=== PATIENT | male | born 1975 | race Caucasian/White ===

== ENCOUNTER 2016-10-05 21:32 | Observation (INO) ==
--- NOTE | 2016-10-05 22:03 | Emergency Department Note ---
Disposition Clinical Impression: Lymph nodes enlarged Disposition: Admitted As Inpatient Condition: Good Referrals: NONE,PCP [Non-Partnered Physician] - Forms: ED Satisfaction Letter Extremity Problem HPI - General Chief complaint: ED Extremity Problem,Nontraumatic Stated complaint: lump on left arm Time Seen by Provider: 10/05/16 21:35 Source: patient Mode of arrival: private vehicle Limitations: no limitations Nursing Notes Reviewed: Yes Vital Signs Reviewed: Yes - History of Present Illness HPI Narrative: 40-year-old male known medical history who presents to the ER with a chief complaint of left upper extremities pain. Patient states he started developing pain to his left arm roughly 4 days ago. He denies any trauma. 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 He states he continued to have worsening pain and swelling so came in. He denies any dog bites, Scratches or any other injuries to his arm. He denies fevers, chills, nausea, vomiting, diarrhea at home. Denies IV drug use. No other complaints. Pt Subjective Complaint: extremity pain Onset (ago): day(s) Consistency: constant Injury Location: left, upper extremity Pain Scale: 9 Quality: aching Radiation: proximal Improves with: nothing Worsens with: nothing Associated symptoms: Denies: chest pain, shortness of breath, abdominal pain, fever, redness - Related Data Home Medications Medication Instructions Recorded Confirmed No Known Home Drugs 10/06/16 10/06/16 Allergies Allergy/AdvReac Type Severity Reaction Status Date / Time Penicillins Allergy Hives Verified 04/24/16 20:05 All systems ED: reviewed and negative except as stated. Constitutional: Denies: fever, chills Cardiovascular: Denies: chest pain Respiratory: Denies: dyspnea Gastrointestinal: Denies: abdominal pain, nausea, vomiting, diarrhea Musculoskeletal: Reports: other (LUE pain) Integumentary: Denies: rash Past Medical History - Past Medical History Attestation: Yes The following information was validated with the patient. Source: patient Medical history: Reports: no medical history Surgical history: Reports: non-contributory Psychiatric history: Reports: no psych history - Social History Smoking Status: Current every day smoker Smokeless Tobacco Status: No Alcohol use: Reports: rarely Drug use: Reports: none Physical Exam - General Limitations: no limitations General appearance: alert, in no apparent distress - Head Head exam: atraumatic, normocephalic, normal inspection - Eye Eye exam: Present: normal appearance, EOMI - ENT ENT exam: normal exam - Neck Neck exam: Present: normal inspection, full ROM - Chest Chest inspection: Present: normal inspection, symmetric chest wall rise - Respiratory Respiratory exam: Present: normal lung sounds bilaterally - Cardiovascular Cardiovascular exam: Present: regular rate, normal rhythm, normal heart sounds - Abdominal Exam Abdominal exam: Present: soft, Non-Tender. Absent: tenderness - Extremities Exam Extremities exam: Present: normal inspection, full ROM - Expanded Upper Extremity Exam Shoulder exam: Present: normal inspection, full ROM Arm exam: Present: normal inspection, full ROM, tenderness (There is tenderness to palpation along the medial aspect of the left arm just proximal to the elbow) , swelling (There is underlying well-circumscribed swelling to the left arm just proximal to the elbow with multiple circumscribed areas.), other (No proximal lymphadenopathy detected on exam.). Absent: crepitus, erythema Elbow exam: Present: normal inspection, full ROM Forearm/Wrist exam: Present: normal inspection, full ROM Hand exam: Present: normal inspection, full ROM Vascular exam: Normal: capillary refill, radial pulse - Expanded Lower Extremity Exam Hip/Pelvis exam: Present: normal inspection, full ROM Upper leg exam: Present: normal inspection, full ROM Knee exam: Present: normal inspection, full ROM Lower leg exam: Present: normal inspection, full ROM Ankle exam: Present: normal inspection, full ROM Foot/toe exam: Present: normal inspection, full ROM Neurovascular/Tendon exam: Absent: motor deficit, sensory deficit - Neurological Exam Neurological exam: Present: alert, other (GCS 15. Nonfocal neurologic exam. Moves all extremities equally. Neurovascularly intact in the left upper extremity.) - Psychiatric Psychiatric exam: Present: normal affect, normal mood - Skin Skin exam: Present: warm, dry, intact, normal color Course Course Narrative: Patient seen and examined. Vital signs reviewed. We will obtain a CT scan of the left upper extremity as well as basic labs. Vital Signs Temperature 97.8 F 10/05/16 21:34 Pulse Rate 86 10/05/16 21:34 Respiratory Rate 18 10/05/16 21:34 Blood Pressure 154/84 10/05/16 21:34 O2 Sat by Pulse Oximetry 97 10/05/16 21:34 Temperature 97.8 F 10/05/16 21:34 Pulse Rate 86 10/05/16 21:34 Respiratory Rate 18 10/05/16 21:34 Blood Pressure 154/84 10/05/16 21:34 O2 Sat by Pulse Oximetry 97 10/05/16 21:34 Oxygen Delivery Oxygen Delivery Room Air Extremity Problem, Nontraumati - Lab Data Lab results reviewed: Yes I reviewed the patient's lab results. Result diagrams: 10/05/16 22:01 10/05/16 22:01 Lab Results 10/05/16 10/05/16 10/05/16 Range/Units 22:01 22:01 22:01 WBC 7.1 (4.3-11.1) K/mcL RBC 4.81 (4.19-5.50) M/mcL Hgb 15.0 (12.9-16.9) g/dL Hct 44.4 (37.5-50.1) % MCV 92.3 (83.0-100.0) fL MCH 31.2 (28.0-33.3) pg MCHC 33.8 (31.6-35.5) g/dL RDW 11.5 (11.5-14.5) % Plt Count 143 (140-400) K/mcL MPV 9.7 (9.4-12.4) fL Immature Gran % 0.4 (0-4) % Seg Neutrophils % 41.8 % Lymphocytes % 43.4 % Monocytes % 10.2 % Eosinophils % 3.5 % Basophils % 0.7 % Neutrophils # 2.9 (1.6-8.9) K/mcL Lymphocytes # 3.1 (0.6-4.6) K/mcL Monocytes # 0.7 (0.0-1.3) K/mcL Eosinophils # 0.3 (0.0-0.6) K/mcL Basophils # 0.1 (0.0-0.2) K/mcL ESR 24 H (0-10) mm/hr Sodium 142 (136-145) mEq/L Potassium 4.0 (3.5-4.5) mEq/L Chloride 107 (98-109) mEq/L Carbon Dioxide 25 (19-29) mEq/L BUN 15 (8-26) mg/dL Creatinine 1.17 (0.72-1.25) mg/dL Est GFR ( Amer) > 60 (> 60) Est GFR (Non-Af Amer) > 60 (> 60) BUN/Creatinine Ratio 13 (6-26) Glucose 105 H (70-99) mg/dL Calculated Osmolality 295 (280-300) Calcium 9.5 (8.6-10.8) mg/dL C-Reactive Protein 5 H (Less than 5) mg/L - Radiology Data Radiology results reviewed: Yes I reviewed the patient's radiology results. Upper Extremity CT 10/05/16 21:50 IMPRESSION: 1. Homogeneously enhancing lesion in the region of the patient's palpable abnormality. Given the presence of the enlarged lymph nodes in the left axillary region, a lymph node is the primary differential consideration. Although this could be secondary to infection or inflammation the possibility of neoplasm must be considered. Correlation with any evidence of upper extremity laceration or injury would be helpful. 2. Consider further evaluation with chest CT to evaluate the possibility of any lymphadenopathy within the chest. Also correlate with any clinical evidence of lymphadenopathy within the neck. D/ / Peng Mcmullen MD / Peng Mcmullen MD Interpreting Provider: Peng Mcmullen MD Attestation Statement - Attestation Attestation: I personally interviewed and examined this patient and my medical decision- making was reviewed with the Resident Physician, Dr. Rosado. I agree with the documented findings, disposition and treatment plan as described except to the extent set forth below. Patient is a 32-year-old white male otherwise healthy who presents to the emergency department with a four-day history of tender palpable nodules to the left medial upper arm. Patient first noticed them approximate 4 days ago and feels they are growing in size. He states he has intermittent episodes of pain that radiate to his left axilla. Patient with no overlying erythema or warmth to touch to the affected area, no induration, no rash or skin breakdown. Otherwise his left upper extremity is neurovascularly intact. I agree patient's physical exam findings as documented. Patient had lab evaluation as well as CT imaging of the affected extremity. Overall labs unremarkable only minor elevations in his sedimentation rate and CRP. White count is normal. Patient's vital signs are stable and he is afebrile. Patient is nontoxic appearing. CT concerning for likely enlarged lymph nodes within the left upper arm and axilla. Cannot rule out malignancy. Will admit the patient for further evaluation of lymphadenopathy including consult with hem/onc. Case was discussed with the hospitalist who accepted the patient for admission and further evaluation.
[2016-10-05 22:12] LABS: Basophils # 0.1 K/mcL (0.0-0.2); Basophils % 0.7 %; Eosinophils # 0.3 K/mcL (0.0-0.6); Eosinophils % 3.5 %; Hematocrit 44.4 % (37.5-50.1); Immature Granulocytes % 0.4 % (0-4); Lymphocytes # 3.1 K/mcL (0.6-4.6); Lymphocytes % 43.4 %; Mean Corpuscular HGB Conc 33.8 g/dL (31.6-35.5); Mean Corpuscular Hemoglobin 31.2 pg (28.0-33.3); Mean Corpuscular Volume 92.3 fL (83.0-100.0); Mean Platelet Volume 9.7 fL (9.4-12.4); Monocytes # 0.7 K/mcL (0.0-1.3); Monocytes % 10.2 %; Neutrophils # 2.9 K/mcL (1.6-8.9); Platelet Count 143 K/mcL (140-400); Red Blood Count 4.81 M/mcL (4.19-5.50); Red Cell Distribution Width 11.5 % (11.5-14.5); Segmented Neutrophils % 41.8 %
[2016-10-05 22:23] LABS: BUN/Creatinine Ratio 13 (6-26); Blood Urea Nitrogen 15 mg/dL (8-26); Calcium 9.5 mg/dL (8.6-10.8); Carbon Dioxide 25 mEq/L (19-29); Chloride 107 mEq/L (98-109); Glucose 105 mg/dL (70-99); Osmolality,Calculated 295 (280-300); Sodium 142 mEq/L (136-145); eGFR For African Americans > 60 (> 60); eGFR For Non-African Americans > 60 (> 60)
[2016-10-05 23:08] LABS: C-Reactive Protein 5 mg/L (Less than 5)
[2016-10-06] MEDS ORDERED: Naloxone 0.4 MG/ML INJ IVP PRN (01:11)
--- NOTE | 2016-10-06 01:22 | Internal Med History&Physical ---
Date of Encounter: 10/06/16 Time of Encounter: 01:18 Assessment and Plan (1) Arm mass Current visit: Yes Status: Acute Differential neoplastic versus infectious - less probable. Nothing by mouth after midnight, IV fluids, consult oncology, consult surgery for tissue biopsy. Consider excisional biopsy. Further management pending technical marketing consultant recommendation. Qualifiers: Laterality: left Qualified Code(s): R22.32 - Localized swelling, mass and lump, left upper limb (2) Lymph nodes enlarged Current visit: Yes Status: Acute Pending investigations. Probably related to arm mass Internal Medicine - H&P: HPI Chief complaint: Left medial arm mass History of present illness: Mr. Monreal is a 40 year old male who presents with evaluation of growing Left medial arm mass. He has been in custodial for the last 20-30 days and has just been released yesterday. He first noticed the left upper arm - medial bicep region mass around when he was in custodial. No prior reports of mass before. No fevers, chills or sweats. Describes the mass being associated witih a sharp discomfort with radiation of pain inferiorly. Pain improves when he raised his arm. He denies any medical hx of uses any medications Family hx of lung, prostate, head/neck ca, lymphoma. CT of left UE noted lesion and enlarge nodes. FINDINGS: Bones: No acute bony abnormality is identified. No osteolysis is found. No periosteal reaction. Soft Tissue: In the region of the patient's palpable abnormality (lying along the lateral aspect of the left arm and the level the mid humerus), there is a round lesion measuring approximately 2.0 cm, demonstrating relatively homogeneous central enhancement, and with surrounding fat stranding. This is seen immediately lateral to the cephalic vein. A smaller satellite lesion is seen just proximal to that lesion measuring 9 mm maximally (axial image number 84). There also multiple enlarged left axillary lymph nodes. For example, a lymph node measures 3.1 x 2.2 cm on axial image 183 and coronal reconstructed image 57. The mediastinum is not well visualized on this study, but no obvious left hilar lymph nodes are identified. Joint: The glenohumeral joint and the left elbow are unremarkable in appearance. CT/CT UE LT w con IMPRESSION: 1. Homogeneously enhancing lesion in the region of the patient's palpable abnormality. Given the presence of the enlarged lymph nodes in the left axillary region, a lymph node is the primary differential consideration. Although this could be secondary to infection or inflammation the possibility of neoplasm must be considered. Correlation with any evidence of upper extremity laceration or injury would be helpful. 2. Consider further evaluation with chest CT to evaluate the possibility of any lymphadenopathy within the chest. Also correlate with any clinical evidence of lymphadenopathy within the neck. Past Med Surg Social Fam HX - Past Medical History Medical history: no medical history Psychiatric history: no psych history - Past Surgical History Surgical History: non-contributory - Social History Smoking Status: Current every day smoker Smokeless Tobacco Status: No Alcohol use: rarely Drug use: none - Additional Family History Additional family history: cancers as noted in H&P Internal Medicine - H&P: Meds No Known Home Drugs 10/06/16 [History] 3 Allergy/AdvReac Type Severity Reaction Status Date / Time Penicillins Allergy Hives Verified 04/24/16 20:05 All Systems PM: A 10-system review of systems was performed and is negative for pertinent findings except as documented above in the HPI. - Constitutional Vitals: Temp Pulse Resp BP Pulse Ox 98.2 F 64 16 137/90 99 10/06/16 00:58 10/06/16 00:58 10/06/16 00:58 10/06/16 00:58 10/06/16 00:58 Exam: General - AAO x 3 Psych - Appropriate affect/speech. No agitation Eyes - DUNIA. Eye lids intact. No scleral icterus ENT - Oral mucosa pink, dentition intact. External ear clear/dry/intact. No thyromegaly Lymphatics - No cervical/inguinal lympadenopathy Neuro - No gross peripheral or central neuro deficits with intact CN 2-12 exam Heart - Sinus. RRR. S1 and S2 present. No added HS/murmurs appreciated. No elevated JVD appreciated. No calf swellings/erythema Lung - Adequate air entry b/l, No crackes/wheezes appreciated GI - Soft, non-tender. No hepatosplenomegaly/ascites. BS+ - No CVA/suprapubic tenderness or palpable bladder distension Skin - Intact. No rash/petechiae/ecchymosis. Warm extremities. Tattoos present MSK - left medial bicep mass palpable Internal Med - H&P Results - Labs CBC & Chem 7: 10/05/16 22:01 10/05/16 22:01
[2016-10-06] MEDS: 0.9 % Sodium Chloride 1,000 ML IVC SCH ×2 (01:51→12:06)
[2016-10-06] MEDS: traMADol 50 MG TABLET PO PRN ×2 (01:51→09:39)
[2016-10-06 02:56] LABS: Hematocrit 42.8 % (37.5-50.1); Hemoglobin 14.2 g/dL (12.9-16.9); Mean Corpuscular HGB Conc 33.2 g/dL (31.6-35.5); Mean Corpuscular Hemoglobin 30.9 pg (28.0-33.3); Mean Platelet Volume 9.4 fL (9.4-12.4); Platelet Count 120 K/mcL (140-400); Red Cell Distribution Width 11.6 % (11.5-14.5)
[2016-10-06 03:01] LABS: INR 1.1; Prothrombin Time 12.1 Seconds (9.4-12.1)
[2016-10-06 03:04] LABS: Activated Partial Thrombo Time 31.8 Seconds (26.0-36.0)
[2016-10-06 03:14] LABS: Alanine Aminotransferase 29 Units/L (0-55); Albumin 3.9 g/dL (3.5-5.0); Albumin/Globulin Ratio 1.2 (1.1-2.2); Alkaline Phosphatase 74 Units/L (38-126); Aspartate Amino Transferase 19 Units/L (5-34); BUN/Creatinine Ratio 13 (6-26); Bilirubin,Total 0.4 mg/dL (0.2-1.2); Blood Urea Nitrogen 14 mg/dL (8-26); Calcium 9.1 mg/dL (8.6-10.8); Carbon Dioxide 25 mEq/L (19-29); Chloride 106 mEq/L (98-109); Globulin 3.3 g/dL (2.4-3.5); Glucose 89 mg/dL (70-99); Osmolality,Calculated 288 (280-300); Potassium 4.1 mEq/L (3.5-4.5); Sodium 139 mEq/L (136-145); Total Protein 7.2 g/dL (6.0-8.3); eGFR For African Americans > 60 (> 60); eGFR For Non-African Americans > 60 (> 60)
[2016-10-06 07:11] VITALS: BP 122/76
--- NOTE | 2016-10-06 09:35 | General Surgery Consult Note ---
Date of Encounter: 10/06/16 Time of Encounter: 09:15 Assessment and Plan (1) Arm mass Current Visit: Yes Status: Acute Dr. Adams to review imaging and examine patient to determine next step in the plan of care No surgical intervention today- may have regular diet Qualifiers: Laterality: left Qualified Code(s): R22.32 - Localized swelling, mass and lump, left upper limb (2) Lymph nodes enlarged Current Visit: Yes Status: Acute History of Present Illness Consult date: 10/06/16 Requesting physician: Eliseo Champagne History of present illness: Mr. Monreal is a very pleasant 40 year old male with no significant medical history who presents to the ED with complaints of a left arm mass. He states that he first noticed the mass 3 weeks ago. The mass has increased in size over the past 3 weeks. Admits to mild tenderness around the mass and into the left axilla. Denies any trauma to the left arm. He denies any previous mass in the past. Denies any numbmess/tingling to the LUE. Denies any loss of function to the LUE. Denies any fevers/chills. Denies any shortness of breath or chest pains. He does report a 20 lb. weight loss over the past couple of months. He was incarcerated for 24 days and was released a couple of days ago. Denies any changes in eating habits. He states that he was incarcerated for multiple misdemeanor charges. He has had a CT which shows evidence of a LUE mass with axillary lymphadenopathy. We have been asked to see and evaluate the patient for recommendations. Past Med Surg Social Fam HX - Past Medical History Source: patient Medical history: no medical history Psychiatric history: no psych history - Past Surgical History Surgical History: other (teeth extraction, tonsillectomy and adenoidectomy) - Social History Smoking Status: Current every day smoker (23 years) Packs per day: 1 Smokeless Tobacco Status: No Alcohol use: rarely Drug use: none Occupational status: employed Current living situation: Home - Independent Activity Level: Independent ambulation - Family History Father Living Status: Age at : 49 Cause of : Myocardial infarction Hx Family Cardiac Disorders: Yes Hx Family Medical Disorders: Yes (DVT) Mother Living Status: Still Living Hx Family Endocrine Disorder: Yes (Diabetes Mellitus) Medications and Allergies No Known Home Drugs 10/06/16 [History] 3 Allergy/AdvReac Type Severity Reaction Status Date / Time Penicillins Allergy Hives Verified 04/24/16 20:05 Review of Systems All systems PM: reviewed and no additional remarkable complaints except as stated (in the HPI) All systems PM: A 10-system review of systems was performed and is negative for pertinent findings except as documented above in the HPI. General Surgery Exam Initial Vital Signs Temp Pulse Resp BP Pulse Ox 97.8 F 86 18 154/84 97 10/05/16 21:34 10/05/16 21:34 10/05/16 21:34 10/05/16 21:34 10/05/16 21:34 - General physical appearance well developed, well nourished, no distress, no pain - Eyes normal ocular movement - ENT normal mucosa, atraumatic, normocephalic - Neck trachea midline - Respiratory normal expansion, normal respiratory effort, clear to auscultation - Cardiovascular Cardiovascular exam: Present: RRR - Abdomen Abdomen general surgery: Present: bowel sounds present, soft, non tender - Integumentary Integumentary general surgery: Present: warm and dry, growths (Left upper extremity mass appreciated on exam; axillary lymph nodes palpable and enlarged on exam) - Neurologic Present: CN 2-12 grossly intact - Musculoskeletal Present: normal gait, normal posture - Psychiatric Psychiatric general surgery: Present: appropriate, oriented to person, oriented to place, oriented to time, speech is normal, memory intact Exam Initial Vital Signs Temp Pulse Resp BP Pulse Ox 97.8 F 86 18 154/84 97 10/05/16 21:34 10/05/16 21:34 10/05/16 21:34 10/05/16 21:34 10/05/16 21:34 Results - Labs 10/06/16 02:36 10/06/16 02:36 Abnormal lab results Plt Count 120 K/mcL (140-400) L 10/06/16 02:36 ESR 24 mm/hr (0-10) H 10/05/16 22:01 C-Reactive Protein 5 mg/L (Less than 5) H 10/05/16 22:01 Diabetes panel 10/06/16 Range/Units 02:36 Sodium 139 (136-145) mEq/L Potassium 4.1 (3.5-4.5) mEq/L Chloride 106 (98-109) mEq/L Carbon Dioxide 25 (19-29) mEq/L BUN 14 (8-26) mg/dL Creatinine 1.05 (0.72-1.25) mg/dL Glucose 89 (70-99) mg/dL Calcium 9.1 (8.6-10.8) mg/dL AST 19 (5-34) Units/L ALT 29 (0-55) Units/L Alkaline Phosphatase 74 (38-126) Units/L Albumin 3.9 (3.5-5.0) g/dL Calcium panel 10/06/16 Range/Units 02:36 Calcium 9.1 (8.6-10.8) mg/dL Albumin 3.9 (3.5-5.0) g/dL Pituitary panel 10/06/16 Range/Units 02:36 Sodium 139 (136-145) mEq/L Potassium 4.1 (3.5-4.5) mEq/L Chloride 106 (98-109) mEq/L Carbon Dioxide 25 (19-29) mEq/L BUN 14 (8-26) mg/dL Creatinine 1.05 (0.72-1.25) mg/dL Glucose 89 (70-99) mg/dL Calcium 9.1 (8.6-10.8) mg/dL Adrenal panel 10/06/16 Range/Units 02:36 Sodium 139 (136-145) mEq/L Potassium 4.1 (3.5-4.5) mEq/L Chloride 106 (98-109) mEq/L Carbon Dioxide 25 (19-29) mEq/L BUN 14 (8-26) mg/dL Creatinine 1.05 (0.72-1.25) mg/dL Glucose 89 (70-99) mg/dL Calcium 9.1 (8.6-10.8) mg/dL Total Bilirubin 0.4 (0.2-1.2) mg/dL AST 19 (5-34) Units/L ALT 29 (0-55) Units/L Alkaline Phosphatase 74 (38-126) Units/L Albumin 3.9 (3.5-5.0) g/dL All other labs normal. - Imaging Additional studies: Upper Extremity CT 10/05/16 21:50 IMPRESSION: 1. Homogeneously enhancing lesion in the region of the patient's palpable abnormality. Given the presence of the enlarged lymph nodes in the left axillary region, a lymph node is the primary differential consideration. Although this could be secondary to infection or inflammation the possibility of neoplasm must be considered. Correlation with any evidence of upper extremity laceration or injury would be helpful. 2. Consider further evaluation with chest CT to evaluate the possibility of any lymphadenopathy within the chest. Also correlate with any clinical evidence of lymphadenopathy within the neck. D/ / Peng Mcmullen MD / Peng Mcmullen MD Interpreting Provider: Peng Mcmullen MD Consult Discharge Plan - Plan Referrals: Hilario Lyon MD [Primary Care Provider] -
--- NOTE | 2016-10-06 11:48 | Internal Med Progress Note ---
Addendum entered and electronically signed by Kvng Cleary DO 10/06/16 14: 12: This should be an event note. H&P was conducted on this same date. Original Note: <Kvng Cleary - Last Filed: 10/06/16 12:40> Date of Encounter: 10/06/16 Time of Encounter: 11:42 - Assessment and plan (1) Arm mass Status: Acute Assessment and plan: CT - Homogeneously enhancing lesion in the region of the patient's palpable abnormality Neoplastic vs inflammatory vs infectious - Weight loss is concerning for malignancy. Less likely infection with normal labs, no fevers, or systemic signs Plan: Currently NPO Surgery consulted - appreciate recommendations Oncology consulted - appreciate recommendations Qualifiers: Laterality: left Qualified Code(s): R22.32 - Localized swelling, mass and lump, left upper limb (2) Lymph nodes enlarged Status: Acute Assessment and plan: Likely related to arm mass Consider future Chest CT to evaluate further/lung involvement Plan: Oncology consulted - appreciate recommendations - Subjective Interval history: Patient seen and examined. Here for growing, painful, left arm mass on medial aspect of upper left arm. Described as sharp pain radiating down his arm. Reports that is began approximately 3 weeks ago while in [facility]. He was incarcerated for about a month and was released two days ago. Associated symptoms are weight loss of about 20 pounds over the past month. He denies trauma to the arm or any precipitating factors. Denies medication changes. Denies fevers, chills, night sweats, rash, erythema, warmth, chest pain, dyspnea , N/V/D, dysuria, or leg pain/swelling. - Constitutional Vitals: Temp Pulse Resp BP Pulse Ox 97.6 F 54 17 122/76 98 10/06/16 07:09 10/06/16 07:09 10/06/16 07:09 10/06/16 07:09 10/06/16 09:32 General appearance: Present: A&O X 3, no acute distress, answers questions appropriately - Head Head exam: Present: atraumatic, normocephalic - Eye Eye exam: Present: conjuntiva pink, sclera anicteric - ENT ENT exam: Present: mucous membranes moist - Neck Neck exam general surgery: Present: full ROM, supple, trachea midline. Absent: tenderness Additional comments: No cervical lymphadenopathy - Respiratory Respiratory exam: Present: CTAB. Absent: rales, rhonchi, wheezes - Cardiovascular Cardiovascular exam: Present: RRR, +S1, +S2. Absent: diastolic murmur, systolic murmur - GI/Abdominal GI/Abdominal exam: Present: normal bowel sounds, soft. Absent: distended, rigid , tenderness - Extremities Exam Extremities exam: Present: warm, radial pulses palpable and symmetrical. Absent : pedal edema, tenderness - Neurological Exam Neurological exam: Present: alert, CN II-XII intact, oriented X3, no focal deficits - Skin Skin exam: Present: dry, intact Internal Medicine: Result - Labs CBC & Chem 7: 10/06/16 02:36 10/06/16 02:36 Labs: Short CBC 10/06/16 Range/Units 02:36 WBC 6.6 (4.3-11.1) K/mcL Hgb 14.2 (12.9-16.9) g/dL Hct 42.8 (37.5-50.1) % Plt Count 120 L (140-400) K/mcL BMP 10/06/16 02:36 Sodium 139 Potassium 4.1 Chloride 106 Carbon Dioxide 25 BUN 14 Creatinine 1.05 Glucose 89 Calcium 9.1 Liver Function 10/06/16 Range/Units 02:36 Total Bilirubin 0.4 (0.2-1.2) mg/dL AST 19 (5-34) Units/L ALT 29 (0-55) Units/L Alkaline Phosphatase 74 (38-126) Units/L Albumin 3.9 (3.5-5.0) g/dL - ABG Interpretation ABG results: PT/INR, D-dimer PT 12.1 Seconds (9.4-12.1) 10/06/16 02:36 Consult Discharge Plan - Plan Instructions: Lymphadenopathy (GEN) Additional Instructions: Follow-up with oncology surgeon at [facility] Follow-up with your primary care provider Referrals: Hilario Lyon MD [Primary Care Provider] - (Called Dr. dias, left voicemail for follow up appointment. Office closed.) <Eliseo Champagne - Last Filed: 10/06/16 17:21> Date of Encounter: 10/06/16 - Constitutional Vitals: Temp Pulse Resp BP Pulse Ox 97.6 F 54 17 122/76 98 10/06/16 07:09 08/25/17 07:09 10/06/16 07:09 10/06/16 07:09 10/06/16 09:32 Internal Medicine: Result - Labs CBC & Chem 7: 10/06/16 02:36 10/06/16 02:36 Labs: Short CBC 10/06/16 Range/Units 02:36 WBC 6.6 (4.3-11.1) K/mcL Hgb 14.2 (12.9-16.9) g/dL Hct 42.8 (37.5-50.1) % Plt Count 120 L (140-400) K/mcL BMP 10/06/16 02:36 Sodium 139 Potassium 4.1 Chloride 106 Carbon Dioxide 25 BUN 14 Creatinine 1.05 Glucose 89 Calcium 9.1 Liver Function 10/06/16 Range/Units 02:36 Total Bilirubin 0.4 (0.2-1.2) mg/dL AST 19 (5-34) Units/L ALT 29 (0-55) Units/L Alkaline Phosphatase 74 (38-126) Units/L Albumin 3.9 (3.5-5.0) g/dL - ABG Interpretation ABG results: PT/INR, D-dimer PT 12.1 Seconds (9.4-12.1) 10/06/16 02:36 - Attending Attestation I examined this patient and my medical decision-making was reviewed with the Resident Physician. I agree with the documented findings, disposition and treatment plan as described except to the extent set forth below.
--- NOTE | 2016-10-06 15:41 | Discharge Summary ---
<Eliseo Champagne P - Last Filed: 10/06/16 17:22> Date of Encounter: 10/06/16 - Discharge Medications Home Medications: No Known Home Drugs 10/06/16 [History] Allergies/Adverse Reactions: 3 Allergy/AdvReac Type Severity Reaction Status Date / Time Penicillins Allergy Hives Verified 04/24/16 20:05 Date of admission: 10/06/16 00:16 Primary care physician: Hilario Lyon Consults: 10/06/16 01:12 Consult to Oncology [CONS] Routine Consulting Provider: [facility] Reason for Consult: RUE mass assist in w/u Call Completed: No Consult to Surgery [CONS] Routine Consulting Provider: [facility] Reason for Consult: may need excision to bx mass. Onc consult Call Completed: No - Patient Status Disposition: Home, Self-Care Condition: Good - Discharge Instructions Instructions: Lymphadenopathy (GEN) Follow Up With: Hilario Lyon MD [Primary Care Provider] - (Called Dr. dias, left voicemail for follow up appointment. Office closed.) Additional Instructions: Follow-up with oncology surgeon at [facility] Follow-up with your primary care provider Hospital course: Mr. Monreal is a 40 year old male - Time Spent with Patient Total time spent providing and/or coordinating discharge services: - Constitutional Vitals: Temp Pulse Resp BP Pulse Ox 97.6 F 54 17 122/76 98 10/06/16 07:09 10/06/16 07:09 10/06/16 07:09 10/06/16 07:09 10/06/16 09:32 - Attending Attestation I examined this patient and my medical decision-making was reviewed with the Resident Physician. I agree with the documented findings, disposition and treatment plan as described except to the extent set forth below. Surgeries recommendation appreciated. Patient should follow-up at [facility]. <Kvng Cleary R - Last Filed: 10/06/16 18:34> Date of Encounter: 10/06/16 Time of Encounter: 10:25 - Discharge Diagnosis (1) Arm mass Priority: Primary Status: Acute Qualifiers: Laterality: left Qualified Code(s): R22.32 - Localized swelling, mass and lump, left upper limb (2) Lymph nodes enlarged Priority: Secondary Status: Acute Date of admission: 10/06/16 00:16 Primary care physician: Hilario Lyon Consults: 10/06/16 01:12 Consult to Oncology [CONS] Routine Consulting Provider: Oncology [facility] Reason for Consult: RUE mass assist in w/u Call Completed: No Consult to Surgery [CONS] Routine Consulting Provider: [facility] Reason for Consult: may need excision to bx mass. Onc consult Call Completed: No Discharging clinician: Kvng Cleary Anticipated date of discharge: 10/06/16 - Patient Status Functional capacity at discharge: independent ambulation Overall status at discharge: patient is back to baseline - Diet and Activity Activity: resume usual activities as tolerated Diet: advance to your usual diet Interval History: Patient seen and examined. He reports that he is feeling well. He states the lump on his arm is tender. Denies other complaints. Denies fever/chills, chest pain, dyspnea, N/V/D, dysuria, or leg pain/edema. Hospital course: Mr. Monreal is a 40 year old male presenting with a tender, enlarging, lump on his right arm. He first noticed this lump approximately 3 weeks ago. He was incarcerated for the past month and was recently released. During this time he also reports a weight loss of about 20 pounds. He does not have other systemic symptoms. CT of his left upper extremity shows a homogeneously enhancing lesion in the region of the patient's palpable abnormality, neoplastic vs inflammatory vs infectious. Surgery was consulted and they recommended the patient be discharged and to follow-up with an Oncology Surgeon at [facility]. - Time Spent with Patient Total time spent providing and/or coordinating discharge services: - Constitutional Vitals: Temp Pulse Resp BP Pulse Ox 97.6 F 54 17 122/76 98 10/06/16 07:09 10/06/16 07:09 10/06/16 07:09 10/06/16 07:09 10/06/16 09:32 General appearance: Present: A&O X 3, no acute distress, answers questions appropriately - Head Head exam: Present: atraumatic, normocephalic - Eye Eye exam: Present: conjuntiva pink, sclera anicteric - Respiratory Respiratory exam: Present: CTAB. Absent: rales, rhonchi, wheezes - Cardiovascular Cardiovascular exam: Present: RRR, +S1, +S2. Absent: diastolic murmur, systolic murmur - GI/Abdominal GI/Abdominal exam: Present: normal bowel sounds, soft. Absent: distended, rigid , tenderness - Extremities Exam Extremities exam: Present: warm, radial pulses palpable and symmetrical. Absent : pedal edema, tenderness Additional comments: Swollen mass in medial aspect of left upper arm - Neurological Exam Neurological exam: Present: alert, CN II-XII intact, oriented X3, no focal deficits - Skin Skin exam: Present: dry, intact
== END 2016-10-06 16:19 | disposition home or self-care (01) ==
LOC: EMEROO 21:32 → 2ANU 21:32
PROVIDERS: ADMIT Internal Medicine Hematology & Oncology; ATTEND Internal Medicine